=== PATIENT | female | born 1935 | race Caucasian/White ===

== ENCOUNTER 2017-02-23 03:35 | Emergency (ER) | payer MEDICARE, OTHER ==
--- NOTE | 2017-02-23 08:49 | CT ---
PRELIMINARY REPORT/[facility]/EMERGENCY AFTER HOURS PROCEDURE: EXAM: CT Head Without Intravenous Contrast CLINICAL HISTORY: 82 years old, female; Injury or trauma; Fall TECHNIQUE: Axial computed tomography images of the head/brain without intravenous contrast. Sagittal reformatted images were created and reviewed. COMPARISON: No relevant prior studies available. FINDINGS: Brain: Age-appropriate cerebral atrophy. Periventricular and subcortical white matter low attenuatio n is consistent with microvascular ischemic change. No hemorrhage. Ventricles: Unremarkable. No ventriculomegaly. Bones/joints: Unremarkable. No acute fracture. Soft tissues: Focal soft tissue swelling and a skin laceration are noted over the right frontal scal p. Vasculature: Intracranial vascular calcifications are noted. Sinuses: Unremarkable as visualized. No acute sinusitis. Mastoid air cells: Unremarkable as visualized. No mastoid effusion. Orbits: Postsurgical changes of bilateral cataract surgery. IMPRESSION: No acute intracranial abnormality. Thank you for allowing us to participate in the care of your patient. Dictated and Authenticated by: Linda Wallace MD 02/23/2017 4:32 AM Central Time ([place] \T\ [place]) FINAL REPORT HEAD CT WIHTOUT CONTRAST: DATE: 02/23/17. COMPARISON: 03/21/16. HISTORY: Fell from bed at intermediate, laceration on forehead, trauma. FINDINGS: I agree with the preliminary [facility] report. There is a focal area of scalp swelling in the right front al region with associated subcutaneous gas, evidence of laceration. The imaged paranasal sinuses an d mastoid air cells are grossly unremarkable with no displaced calvarial fracture noted. There is prominent diffuse cerebral volume loss. There is extensive periventricular deep and subcor tical white matter hypodensity, evidence of small-vessel disease. No intracranial hemorrhage, midline shift, or mass effect. IMPRESSION: Chronic findings as described above. No intracranial hemorrhage or displaced calvarial fracture. POS: [facility]
--- NOTE | 2017-02-23 08:51 | CT ---
PRELIMINARY REPORT/[facility]/EMERGENCY AFTER HOURS PROCEDURE: EXAM: CT Cervical Spine Without Intravenous Contrast CLINICAL HISTORY: 82 years old, female; Injury or trauma; Fall; Initial encounter; Blunt trauma TECHNIQUE: Axial computed tomography images of the cervical spine without intravenous contrast. Coronal and sagittal reformatted images were created and reviewed. COMPARISON: No relevant prior studies available. FINDINGS: Vertebrae: Straightening of the cervical spine. Mild anterolisthesis of C3 upon C4. No acute fractur e. Discs/spinal canal/neural foramina: Multilevel osteophytosis and disc space loss are present. Mild t o moderate multilevel spinal canal stenosis. Multilevel facet arthropathy with associated neuroforam inal narrowing. Soft tissues: A 6 mm nodule is seen in the right thyroid lobe. Lung apices: Unremarkable as visualized. IMPRESSION: 1. No acute cervical spine fracture or dislocation. 2. Multilevel degenerative changes. Thank you for allowing us to participate in the care of your patient. Dictated and Authenticated by: Linda Wallace MD 02/23/2017 4:32 AM Central Time ([place] \T\ [place]) FINAL REPORT CT CERVICAL SPINE: Date: 02/23/17 TECHNIQUE: Multiple axial tomograms obtained through the cervical spine without IV contrast. IMPRESSION: There are moderate degenerative changes apparent. Vertebral bodies maintain height and alignment. De pression of the superior end plate of C5 is of indeterminate age. I am in agreement with the preliminary report issued by [facility]. POS: [facility]
[2017-02-23] MEDS ORDERED: Sodium Chloride Irrig Solution 250 ML BOT ONE (08:54)
== END 2017-02-23 06:45 ==
LOC: MADERS 03:35
DX: S01.81XA Laceration without foreign body of other part of head, initial encounter (principal); S51.811A Laceration without foreign body of right forearm, initial encounter; S81.811A Laceration without foreign body, right lower leg, initial encounter; E03.9 Hypothyroidism, unspecified; E78.5 Hyperlipidemia, unspecified; G30.9 Alzheimer's disease, unspecified; F02.80 Dementia in other diseases classified elsewhere, unspecified severity, without behavioral disturbance, psychotic disturbance, mood disturbance, and anxiety; I12.9 Hypertensive chronic kidney disease with stage 1 through stage 4 chronic kidney disease, or unspecified chronic kidney disease; N18.3 Chronic kidney disease, stage 3 (moderate); F32.9 Major depressive disorder, single episode, unspecified; F41.9 Anxiety disorder, unspecified; Z79.899 Other long term (current) drug therapy; W19.XXXA Unspecified fall, initial encounter
CPT/HCPCS: 36416; 70450; 72125